=== PATIENT | female | born 1965 | race Caucasian/White ===

== ENCOUNTER 2020-01-15 01:40 | Emergency (ER) | payer MEDICARE ==
[~2020-01-15] VITALS: Ht 160 cm; Wt 129.6 kg
[2020-01-15] MEDS ORDERED: SULF1TAB49 PO (01:54)
[2020-01-15] MEDS ORDERED: sulfamethoxazole/trimethoprim DS (800/160mg) tablet PO ONE (01:55)
[2020-01-15] MEDS ORDERED: TETanus/Pertussis (Acell)/Diphther VAC/PF (Tdap-Adult) 0.5ml syringe IMVAC ONE (01:55)
[2020-01-15] MEDS ORDERED: ondansetron 4mg rapidly disintigrating tab PO ONE (01:55)
[2020-01-15 02:13] VITALS: BP 172/94
== END 2020-01-15 02:14 | disposition home or self-care (01) ==
LOC: ER 01:41
DX: T63.301A Toxic effect of unspecified spider venom, accidental (unintentional), initial encounter (principal); M25.562 Pain in left knee; E78.00 Pure hypercholesterolemia, unspecified; I10 Essential (primary) hypertension; E11.9 Type 2 diabetes mellitus without complications; G89.29 Other chronic pain; Z79.899 Other long term (current) drug therapy; Y92.89 Other specified places as the place of occurrence of the external cause
CPT/HCPCS: 90471; 90715; 99283